=== PATIENT | male | born 1980 | race Caucasian/White ===

== ENCOUNTER → 2019-05-30 11:54 | Outpatient (CLI) | payer OTHER, SELFPAY ==
--- NOTE | 2019-05-30 13:20 | STRESSREP ---
Stress Test Report Exercise stress test. 39-year-old man with a history of chest pain. Stress protocol: Rest EKG demonstrates normal sinus rhythm with a rate of 65 bpm normal intervals are noted. The patient exercised according to regular Abraham protocol for total duration of 11 minutes completing 2 minutes into stage IV of the Abraham protocol. The maximum heart rate attained was 162 bpm which was 90% of maximum predicted heart rate the maximum workload was 13.4 metabolic equivalents. At rest there were no ST or T wave changes noted suggest ischemia at peak exercise upsloping ST changes only were noted with no meet the criteria for ischemia. The resting blood pressure was 122/78 with a peak blood pressure 146/70 mmHg. No clinical angina was noted no arrhythmias were noted. The test was terminated due to leg fatigue. Conclusion: Exercise stress test with no EKG criteria for ischemia at a high workload. No clinical angina noted. No arrhythmias noted.
== END ==
PROVIDERS: PCP Student in an Organized Health Care Education/Training Program; Referring Provider Student in an Organized Health Care Education/Training Program; Visit Provider Student in an Organized Health Care Education/Training Program
DX: R00.2 Palpitations (principal); R07.9 Chest pain, unspecified
CPT/HCPCS: 93017